=== PATIENT | male | born 1965 | race Caucasian/White ===

== ENCOUNTER 2025-05-25 18:12 | Emergency (ER) | payer BC, SELFPAY ==
[2025-05-25 18:15] VITALS: BP 176/111
--- NOTE | 2025-05-25 18:36 | ED.GENMED ---
History of Present Illness
<Becky Bill DO, Resident - Last Filed: 05/25/25 22:54>
General
Chief Complaint: Musculo-Skeletal Complaint
Source: patient
Exam Limitations: none
Time Seen by Provider: 05/25/25 18:23
Nursing documentation reviewed up to this point in time: agreed with
History of Present Illness
History of Present Illness:
Patient is a 60-year-old male with past medical history hypertension hyperlipidemia presenting with left knee pain. Patient was at the [employer] this evening was walking up the stadium stairs when he noticed a popping in his left knee. He said
the pain was extreme and that he was unable to bear weight. This happened at 4 PM. Patient has chronic left knee pain from pickleball, and is scheduled to see the [facility] doctor on Friday. Patient's chronic pain has not interfered with his
physical activity, he goes on walks with his and plays golf numerous times a week. Patient has full range of motion of left knee, but notes stiffness and some pain with extension. No pain with flexion. Patient states that the pain radiates
down the lateral side of his calf. Patient notes that he occasionally feels a swelling/stiffness in the back of his left knee after working out, that dissipates. Patient has not taken any pain medication today.
Of note 12 years ago patient was seen here for right knee pain, which was found to be related to arthritic changes of the right knee.
Past History
<Becky Bill DO, Resident - Last Filed: 05/25/25 22:54>
Past History
ED Past Medical History: Hypercholesterolemia
ED Past Surgical History: None
Social History
Tobacco: Non-smoker
Living: with family
Review of Systems
<Becky Bill DO, Resident - Last Filed: 05/25/25 22:54>
Review of Systems
Allergies reviewed?: Yes
All Other Systems: ROS reviewed and negative except as documented in HPI and ROS
Constitutional: Reports no symptoms
EENT: Reports no symptoms
Respiratory: Reports no symptoms
Cardiac: Reports no symptoms
ABD/GI: Reports no symptoms
: Reports no symptoms
Musculoskeletal: Reports other (Left knee pain)
Skin: Reports no symptoms
Neurological: Reports no symptoms
Endocrine: Reports no symptoms
Hematologic/Lymphatic: Reports no symptoms
Psychiatric: Reports no symptoms
Phy Exam
<Becky Bill DO, Resident - Last Filed: 05/25/25 22:54>
General Physical Exam
General Presentation: well appearing and no apparent distress
General age: appears stated age
General Skin: warm and dry
General Habitus: normal
General Mental: alert
Cardiovascular Exam
Cardiovascular Exam: regular rate/rhythm
Heart Sounds: normal
Pulmonary Exam
Pulmonary Exam: lungs clear, no respiratory distress, no crackles and no wheezing
Musculoskeletal Exam
Musculoskeletal Exam: full ROM and other (Negative Daquan's sign on left knee. No swelling noted. Patient with hesitancy on left knee extension)
Skin Exam
Skin Exam: normal color and warm/dry
Psychiatric Exam
Psychiatric Exam: normal mood/affect
Course
<Becky Bill DO, Resident - Last Filed: 05/25/25 22:54>
Orders/Labs/Results
Orders:
Orders
05/25/25 19:08
Ketorolac [Toradol] 15 mg IM NOW STA
CR Knee - Left 4 Or More View* Urgent
Comment:
Reason For Exam: acute on chronic left knee pain
05/25/25 20:01
Crutches-Treatment ONCE
Knee Immobilizer Left-Treatmen ONCE
Vital Signs
Initial and Last Documented VS:
Initial Vital Signs
Temp Pulse Resp BP Pulse Ox
97.9 F 97 16 176/111 98
05/25/25 18:15 05/25/25 18:15 05/25/25 18:15 05/25/25 18:15 05/25/25 18:15
Last Documented Vital Signs
Temp Pulse Resp BP Pulse Ox
97.9 F 97 16 184/99 98
05/25/25 18:15 05/25/25 18:15 05/25/25 18:15 05/25/25 18:49 05/25/25 18:45
<Avinash Garnica DO - Last Filed: 05/25/25 23:24>
Orders/Labs/Results
Orders:
Orders
05/25/25 19:08
Ketorolac [Toradol] 15 mg IM NOW STA
CR Knee - Left 4 Or More View* Urgent
Comment:
Reason For Exam: acute on chronic left knee pain
05/25/25 20:01
Crutches-Treatment ONCE
Knee Immobilizer Left-Treatmen ONCE
Vital Signs
Initial and Last Documented VS:
Initial Vital Signs
Temp Pulse Resp BP Pulse Ox
97.9 F 97 16 176/111 98
05/25/25 18:15 05/25/25 18:15 05/25/25 18:15 05/25/25 18:15 05/25/25 18:15
Last Documented Vital Signs
Temp Pulse Resp BP Pulse Ox
97.9 F 97 16 184/99 98
05/25/25 18:15 05/25/25 18:15 05/25/25 18:15 05/25/25 18:49 05/25/25 18:45
<Becky Bill DO, Resident - Last Filed: 05/25/25 22:54>
MDM/Problems Addressed
Differential Diagnosis Includes:
Knee strain
MDM/Problems Addressed:
Toradol 15 mg IM. Will get an x-ray of the left knee.
10: 00 no findings on x-ray, will discharge patient with knee immobilizer + crutches. Patient has follow-up appointment on Friday with [facility] already scheduled.
<Becky Bill DO, Resident - Last Filed: 05/25/25 22:54>
*Pulse Oximetry
SaO2: 98
Oxygen Mode of Delivery: Room air
Patient hypoxic: no
*Critical Care Note
Total Time (30-74mins, 75-104mins- exclusive of procedures): Not Applicable
ED Attending Note
<Becky Bill DO, Resident - Last Filed: 05/25/25 22:54>
-
Portions of this chart may have been created with voice recognition software.� Occasional wrong word or��sound alike� substitutions may have occurred due to the inherent limitations of voice recognition software.
<Avinash Garnica, DO - Last Filed: 05/25/25 23:24>
ED Attending Note
Patient seen and examined by attending physician: Yes
I performed a history and physical exam of patient and discussed management with resident, I reviewed resident's note and agree with documented findings and plan of care.: Yes
ED Attending Note:
I reviewed and agree with patient treatment plan by Becky Bill D.O. My exam revealed 60-year-old male no acute distress mild limited range of motion in extension of left knee no ligament laxity no deformity. X-ray with mild degenerative
changes. Patient given knee immobilizer and crutches. He has follow-up with orthopedics next week. Return precautions given.
Discharge Plan
Departure
Patient Disposition: Home (Routine Discharge)
Date of Disposition: 05/25/25
Time of Disposition: 20:09
Patient with high blood pressure during this ER visit?: Yes
Discharge Problem:
Acute knee pain
Instructions: How to Use Crutches, Knee Immobilizer (DC), Knee Pain (DC), BLOOD PRESSURE
Prescriptions:
No Action
atorvastatin 20 MG tablet
20 mg PO QPM
Activity Restrictions/Additional Instructions:
Please use knee immobilizer and crutches when ambulating. Rest, ice, elevation for symptom management. Can take acetaminophen as needed for pain. Please follow-up at your appointment on Friday with [facility]. We are providing you with
a copy of your x-ray report. Please return to the emergency department if symptoms worsen.
Interventions
Interventions:
*Risk Screen - Suicide Last Done: 05/25/25 18:15
*General Assessment Last Done: 05/25/25 18:28
*Neglect/Abuse Screening Last Done: 05/25/25 18:15
*ED- Fall Risk Assessment Last Done: 05/25/25 18:28
*ED COVID-19 Vaccine History Last Done: 05/25/25 18:28
*Nursing Disposition Last Done: 05/25/25 20:35
ED-Musculoskeletal Assessment Last Done: 05/25/25 18:28
Discharge Date and Time
Discharge Date/Time: 05/25/25 20:35
Print Language: MACEDONIAN
[2025-05-25 18:49] VITALS: BP 184/99
[2025-05-25] MEDS: TORADOL 15 MG IM (19:18)
== END 2025-05-25 20:35 | disposition home or self-care (01) ==
LOC: EMR 18:12
PROVIDERS: EMERGENCY PHYSICIAN Emergency Medicine; FAMILY PHYSICIAN Internal Medicine
DX: M25.562 Pain in left knee (principal); I10 Essential (primary) hypertension; E78.00 Pure hypercholesterolemia, unspecified; M17.11 Unilateral primary osteoarthritis, right knee
CPT/HCPCS: 99283; 29505; 73564